=== PATIENT | female | born 1985 | race Two or more races ===

== ENCOUNTER 2020-01-30 17:51 | Inpatient (IN) | payer OTHER ==
[2020-01-30] MEDS ORDERED: ONDANSETRON *ODT* 4 MG TABLET SL PRN (20:05)
[2020-01-30] MEDS ORDERED: ACETAMINOPHEN 325 MG TABLET (FP) PO PRN ×2 (20:05)
[2020-01-30] MEDS ORDERED: NICOTINE POLACRILEX 2 MG GUM BUC PRN (20:05)
[2020-01-30] MEDS ORDERED: BISMUTH SUBSALICYLATE 524 MG/30 ML UD PO PRN (20:05)
[2020-01-30] MEDS ORDERED: MENTHOL/PHENOL 1 EACH UD MM PRN (20:05)
[2020-01-30] MEDS ORDERED: MAGNESIUM CITRATE 300 ML BOTTLE PO PRN (20:05)
[2020-01-30] MEDS ORDERED: METHADONE HCL 10 MG TABLET (FOR DETOX USE ONLY) PO ONE (20:05)
[2020-01-30] MEDS ORDERED: MAG HYDROX/AL HYDROX/SIMETH 30 ML UNIT-DOSE CUP PO PRN (20:05)
[2020-01-30 21:42] VITALS: BMI 25.6
[2020-01-30] MEDS: THIAMINE HCL 100 MG TABLET (FP) PO SCH (22:38)
[2020-01-30] MEDS: IBUPROFEN 400 MG TABLET (FP) PO PRN (22:38)
[2020-01-30] MEDS: MELATONIN 5 MG TABLETS PO SCH (23:25)
[2020-01-30] MEDS: hydrOXYzine PAMOATE 25 MG CAPSULE (FP) PO SCH (23:28)
[2020-01-31] MEDS: hydrOXYzine PAMOATE 25 MG CAPSULE (FP) PO SCH ×5 (05:17→22:16)
[2020-01-31] MEDS ORDERED: METHADONE HCL 5 MG TABLET (FOR DETOX USE ONLY) ONE (09:27)
[2020-01-31] MEDS ORDERED: METHADONE HCL 10 MG TABLET (FOR DETOX USE ONLY) ONE (09:28)
[2020-01-31] MEDS ORDERED: METHADONE (DETOX) 20 MG, METHADONE (DETOX) 5 MG PO ONE (10:00)
[2020-01-31] MEDS: NICOTINE 14 MG/24 HOURS TOPICAL PATCH TD SCH (10:47)
[2020-01-31] MEDS: PRENATAL VITAMINS W/ FOLIC ACID TABLET (FP) PO SCH (10:47)
[2020-01-31 10:57] LABS: HEMATOCRIT 32.8 % (32.4-45.2); HEMOGLOBIN 10.3 GM/dL (10.7-15.3); MCH 20.3 pg (25.7-33.7); MCHC 31.4 g/dl (32.0-36.0); MEAN CELL VOLUME 64.6 fl (80-96); MEAN PLT VOLUME 9.1 fl (7.5-11.1); PLATELET COUNT 248 K/MM3 (134-434); RBC 5.08 M/mm3 (3.60-5.2); RDW 20.5 % (11.6-15.6); WHITE BLOOD COUNT 5.6 K/mm3 (4.0-10.0)
[2020-01-31 10:58] LABS: CALCIUM 8.7 mg/dL (8.5-10.1)
[2020-01-31 10:59] LABS: ALBUMIN 3.3 g/dl (3.4-5.0); BLOOD UREA NITROGEN 10.6 mg/dL (7-18)
[2020-01-31 11:02] LABS: CREATININE 0.6 mg/dL (0.55-1.3)
[2020-01-31 11:04] LABS: BILIRUBIN,TOTAL 0.6 mg/dL (0.2-1); TOT PROT 6.7 g/dl (6.4-8.2)
[2020-01-31] MEDS: IBUPROFEN 400 MG TABLET (FP) PO PRN (15:14)
[2020-01-31] MEDS ORDERED: MASKS NR ONE (16:12)
[2020-01-31] MEDS: cloNIDine HCL 0.1 MG TABLET PO PRN (17:30)
[2020-01-31] MEDS: METHOCARBAMOL 500 MG TABLET PO PRN (22:16)
[2020-01-31] MEDS: THIAMINE HCL 100 MG TABLET (FP) PO SCH (22:16)
[2020-01-31] MEDS: MELATONIN 5 MG TABLETS PO SCH (22:16)
[2020-02-01] MEDS: hydrOXYzine PAMOATE 25 MG CAPSULE (FP) PO SCH ×5 (05:41→22:28)
[2020-02-01] MEDS ORDERED: METHADONE HCL 10 MG TABLET (FOR DETOX USE ONLY) PO ONE (10:00)
[2020-02-01] MEDS: NICOTINE 14 MG/24 HOURS TOPICAL PATCH TD SCH (10:29)
[2020-02-01] MEDS: METHOCARBAMOL 500 MG TABLET PO PRN ×2 (10:31→17:18)
[2020-02-01] MEDS: PRENATAL VITAMINS W/ FOLIC ACID TABLET (FP) PO SCH (10:32)
[2020-02-01] MEDS ORDERED: PNEUMOC 13-VAL CONJ-DIP CRM/PF 0.5 ML DISP.SYRIN IM ONE (12:00)
[2020-02-01] MEDS ORDERED: FLU VACCINE (FLULAVAL) PF 60 MCG/0.5 ML SYRINGE 2020-2021 IM ONE (12:00)
[2020-02-01] MEDS: cloNIDine HCL 0.1 MG TABLET PO PRN (12:33)
[2020-02-01] MEDS: IBUPROFEN 400 MG TABLET (FP) PO PRN (15:46)
[2020-02-01] MEDS: MAGNESIUM HYDROX 2400MG/30ML ORAL SUSPENSION 30 ML CUP PO PRN (17:20)
[2020-02-01] MEDS: MELATONIN 5 MG TABLETS PO SCH (22:28)
[2020-02-01] MEDS: THIAMINE HCL 100 MG TABLET (FP) PO SCH (22:28)
[2020-02-02] MEDS: METHOCARBAMOL 500 MG TABLET PO PRN (05:34)
[2020-02-02] MEDS: hydrOXYzine PAMOATE 25 MG CAPSULE (FP) PO SCH (05:34)
[2020-02-02] MEDS: IBUPROFEN 400 MG TABLET (FP) PO PRN (08:57)
[2020-02-02] MEDS ORDERED: METHADONE HCL 5 MG TABLET (FOR DETOX USE ONLY) ONE (09:56)
[2020-02-02] MEDS ORDERED: METHADONE HCL 10 MG TABLET (FOR DETOX USE ONLY) ONE (09:56)
[2020-02-02] MEDS ORDERED: METHADONE (DETOX) 10 MG, METHADONE (DETOX) 5 MG PO ONE (10:00)
[2020-02-02] MEDS: hydrOXYzine PAMOATE 25 MG CAPSULE (FP) PO PRN ×2 (10:29→21:57)
[2020-02-02] MEDS: PRENATAL VITAMINS W/ FOLIC ACID TABLET (FP) PO SCH (10:30)
[2020-02-02] MEDS: NICOTINE 14 MG/24 HOURS TOPICAL PATCH TD SCH (10:43)
[2020-02-02] MEDS ORDERED: IBUPROFEN 600 MG TABLET (FP) PO PRN (11:02)
[2020-02-02] MEDS: METHOCARBAMOL 750 MG TAB PO PRN ×2 (13:18→21:57)
[2020-02-02] MEDS: FERROUS SO4 325 MG TABLET (FP) PO SCH ×2 (13:18→17:48)
[2020-02-02] MEDS: MAGNESIUM HYDROX 2400MG/30ML ORAL SUSPENSION 30 ML CUP PO PRN (13:18)
[2020-02-02 18:28] LABS: HIV INTERPRETATION NEGATIVE (NEGATIVE)
[2020-02-02] MEDS: MELATONIN 5 MG TABLETS PO SCH (21:58)
[2020-02-02] MEDS: THIAMINE HCL 100 MG TABLET (FP) PO SCH (21:58)
[2020-02-03] MEDS: METHOCARBAMOL 750 MG TAB PO PRN (06:33)
[2020-02-03] MEDS: FERROUS SO4 325 MG TABLET (FP) PO SCH (07:22)
[2020-02-03 09:26] VITALS: BP 114/62; PULSE 78; TEMP 97.1
[2020-02-03] MEDS ORDERED: METHADONE HCL 10 MG TABLET (FOR DETOX USE ONLY) PO ONE (10:00)
[2020-02-03] MEDS: PRENATAL VITAMINS W/ FOLIC ACID TABLET (FP) PO SCH (10:14)
[2020-02-03] MEDS: NICOTINE 14 MG/24 HOURS TOPICAL PATCH TD SCH (10:15)
[2020-02-03 10:40] LABS: BASO % 0.3 % (0-2.0); EOS % 1.1 % (0-4.5); HEMATOCRIT 29.4 % (32.4-45.2); HEMOGLOBIN 9.3 GM/dL (10.7-15.3); LYMPH % 25.9 % (8-40); MCHC 31.6 g/dl (32.0-36.0); MEAN CELL VOLUME 63.1 fl (80-96); MEAN PLT VOLUME 8.7 fl (7.5-11.1); MONO % 10.6 % (3.8-10.2); NEUT % 62.1 % (42.8-82.8); PLATELET COUNT 213 K/MM3 (134-434); RBC 4.65 M/mm3 (3.60-5.2)
[2020-02-03 12:23] LABS: ANISOCYTOSIS 1+; MACROCYTOSIS 0; PLATELET ESTIMATE NORMAL
[2020-02-04] MEDS ORDERED: METHADONE HCL 5 MG TABLET (FOR DETOX USE ONLY) PO ONE (06:00)
== END 2020-02-03 12:20 | disposition home or self-care (01) | DRG 773 ==
LOC: YASAS 17:51 → Y6N 21:22
PROVIDERS: ADMIT Allergy & Immunology; ATTEND Allergy & Immunology
PROC: HZ2ZZZZ Detoxification Services for Substance Abuse Treatment (ICD-10-PCS; principal; 2020-01-30)
DX: F11.23 Opioid dependence with withdrawal (principal); F14.20 Cocaine dependence, uncomplicated; F17.210 Nicotine dependence, cigarettes, uncomplicated; D50.9 Iron deficiency anemia, unspecified; R63.4 Abnormal weight loss; Z68.25 Body mass index [BMI] 25.0-25.9, adult
CPT/HCPCS: 36415; 80053; 81025; 85025; 85027; 86780; 87389; 90670; 93005; 93010; C9803; G0008; G0009; J0735; Q2036; U0003

== ENCOUNTER 2020-06-07 19:00 | Inpatient (IN) | payer OTHER ==
[2020-06-07] MEDS ORDERED: MAGNESIUM CITRATE 300 ML BOTTLE PO PRN (21:57)
[2020-06-07] MEDS ORDERED: MAG HYDROX/AL HYDROX/SIMETH 30 ML UNIT-DOSE CUP PO PRN (21:57)
[2020-06-07] MEDS ORDERED: MENTHOL/PHENOL 1 EACH UD MM PRN (21:57)
[2020-06-07] MEDS ORDERED: NICOTINE POLACRILEX 2 MG GUM BUC PRN (21:57)
[2020-06-07] MEDS ORDERED: MAGNESIUM HYDROX 2400MG/30ML ORAL SUSPENSION 30 ML CUP PO PRN (21:57)
[2020-06-07] MEDS ORDERED: BISMUTH SUBSALICYLATE 524 MG/30 ML UD PO PRN (21:57)
[2020-06-07] MEDS ORDERED: ACETAMINOPHEN 325 MG TABLET (FP) PO PRN ×2 (21:57)
[2020-06-07] MEDS ORDERED: ONDANSETRON *ODT* 4 MG TABLET SL PRN (21:57)
[2020-06-07] MEDS ORDERED: METOPROLOL TARTRATE 50 MG TABLET (FP) PO ONE (22:00)
[2020-06-07] MEDS ORDERED: diazePAM 5 MG TABLET PO PRN (22:00)
[2020-06-07 22:03] VITALS: BMI 25.7
[2020-06-07] MEDS ORDERED: METHADONE HCL 10 MG TABLET (FOR DETOX USE ONLY) PO ONE ×3 (22:03)
[2020-06-07] MEDS ORDERED: METHADONE (DETOX) 20 MG, METHADONE (DETOX) 5 MG PO ONE (23:00)
[2020-06-07] MEDS ORDERED: METHADONE HCL 5 MG TABLET (FOR DETOX USE ONLY) ONE (23:21)
[2020-06-07] MEDS ORDERED: METHADONE HCL 10 MG TABLET (FOR DETOX USE ONLY) ONE (23:21)
[2020-06-07] MEDS: SULFAMETHOXAZOLE/TRIMETHOPRIM 800MG/160MG D.S. TABLET PO SCH (23:26)
[2020-06-07] MEDS: diazePAM 5 MG TABLET PO SCH (23:27)
[2020-06-07] MEDS: THIAMINE HCL 100 MG TABLET (FP) PO SCH (23:29)
[2020-06-07] MEDS: MELATONIN 5 MG TABLETS PO SCH (23:29)
[2020-06-07] MEDS: IBUPROFEN 400 MG TABLET (FP) PO PRN (23:35)
[2020-06-08] MEDS: diazePAM 5 MG TABLET PO SCH ×4 (06:20→22:28)
[2020-06-08] MEDS ORDERED: METHADONE (DETOX) 20 MG, METHADONE (DETOX) 5 MG PO ONE (10:00)
[2020-06-08] MEDS ORDERED: METHADONE HCL 10 MG TABLET (FOR DETOX USE ONLY) PO ONE (10:00)
[2020-06-08] MEDS: PRENATAL VITAMINS W/ FOLIC ACID TABLET (FP) PO SCH (10:45)
[2020-06-08] MEDS: BACITRACIN/POLYMYXIN B SULFATE 15 GM TUBE TP SCH ×2 (10:45→22:28)
[2020-06-08] MEDS: SULFAMETHOXAZOLE/TRIMETHOPRIM 800MG/160MG D.S. TABLET PO SCH ×2 (10:45→22:28)
[2020-06-08 12:01] LABS: HEMATOCRIT 38.8 % (32.4-45.2); HEMOGLOBIN 13.1 GM/dL (10.7-15.3); MCH 25.5 pg (25.7-33.7); MCHC 33.7 g/dl (32.0-36.0); MEAN CELL VOLUME 75.7 fl (80-96); PLATELET COUNT 287 K/MM3 (134-434); RBC 5.13 M/mm3 (3.60-5.2); RDW 16.4 % (11.6-15.6); WHITE BLOOD COUNT 17.4 K/mm3 (4.0-10.0)
[2020-06-08] MEDS: METHOCARBAMOL 500 MG TABLET PO PRN (12:14)
[2020-06-08] MEDS: IBUPROFEN 400 MG TABLET (FP) PO PRN ×2 (12:14→17:42)
[2020-06-08 12:18] LABS: POTASSIUM 4.2 mmol/L (3.5-5.1)
[2020-06-08 12:22] LABS: BLOOD UREA NITROGEN 16.5 mg/dL (7-18)
[2020-06-08 12:25] LABS: CREATININE 0.6 mg/dL (0.55-1.3)
[2020-06-08 12:27] LABS: TOT PROT 7.1 g/dl (6.4-8.2)
[2020-06-08 13:05] LABS: HIV INTERPRETATION NEGATIVE (NEGATIVE)
[2020-06-08] MEDS: MELATONIN 5 MG TABLETS PO SCH (22:29)
[2020-06-08] MEDS: THIAMINE HCL 100 MG TABLET (FP) PO SCH (22:29)
[2020-06-09] MEDS ORDERED: diazePAM 5 MG TABLET PO SCH (06:00)
[2020-06-09] MEDS: IBUPROFEN 400 MG TABLET (FP) PO PRN (06:52)
[2020-06-09] MEDS: METHOCARBAMOL 500 MG TABLET PO PRN (06:52)
[2020-06-09] MEDS ORDERED: METHADONE HCL 10 MG TABLET (FOR DETOX USE ONLY) PO ONE (10:00)
[2020-06-09] MEDS ORDERED: METHADONE HCL 5 MG TABLET (FOR DETOX USE ONLY) PO ONE (10:00)
[2020-06-09] MEDS: SULFAMETHOXAZOLE/TRIMETHOPRIM 800MG/160MG D.S. TABLET PO SCH (10:33)
[2020-06-09] MEDS: PRENATAL VITAMINS W/ FOLIC ACID TABLET (FP) PO SCH (10:33)
[2020-06-09] MEDS: BACITRACIN/POLYMYXIN B SULFATE 15 GM TUBE TP SCH (10:33)
[2020-06-09 13:14] VITALS: BP 117/68; PULSE 114; TEMP 98.5
[2020-06-10] MEDS ORDERED: diazePAM 5 MG TABLET PO SCH (06:00)
[2020-06-10] MEDS ORDERED: METHADONE HCL 10 MG TABLET (FOR DETOX USE ONLY) PO ONE (10:00)
[2020-06-10] MEDS ORDERED: METHADONE (DETOX) 10 MG, METHADONE (DETOX) 5 MG PO ONE (10:00)
[2020-06-11] MEDS ORDERED: diazePAM 5 MG TABLET PO ONE (06:00)
[2020-06-11] MEDS ORDERED: METHADONE HCL 10 MG TABLET (FOR DETOX USE ONLY) PO ONE (10:00)
[2020-06-11] MEDS ORDERED: METHADONE HCL 5 MG TABLET (FOR DETOX USE ONLY) PO ONE (10:00)
[2020-06-12] MEDS ORDERED: METHADONE HCL 5 MG TABLET (FOR DETOX USE ONLY) PO ONE (06:00)
== END 2020-06-09 12:02 | disposition left against medical advice (07) | DRG 770 ==
LOC: YASAS 19:00 → Y6N 22:14
PROVIDERS: ADMIT Allergy & Immunology; ATTEND Allergy & Immunology
PROC: HZ2ZZZZ Detoxification Services for Substance Abuse Treatment (ICD-10-PCS; principal; 2020-06-07)
DX: F11.23 Opioid dependence with withdrawal (principal); F10.230 Alcohol dependence with withdrawal, uncomplicated; F14.20 Cocaine dependence, uncomplicated; F17.210 Nicotine dependence, cigarettes, uncomplicated; S52.202G Unspecified fracture of shaft of left ulna, subsequent encounter for closed fracture with delayed healing; W11.XXXD Fall on and from ladder, subsequent encounter
CPT/HCPCS: 36415; 80053; 81025; 85027; 86780; 87389; 93005; 93010; C9803; U0003